=== PATIENT | male | born 1950 | race Two or more races ===

== ENCOUNTER → 2018-04-22 | Day surgery (SDC) | payer OTHER ==
[~2018-04-22] MED LIST: CALTRATE 600 +1 EACH PO; CALTRATE 61 TAB.CHEW; FOSAMAX70 MG PO; INTEGRA PLUS C1 EACH PO; VEDOLIZUMAB PO; [UNRECOGNIZED DRUG - OTHER] PO
== END | disposition home or self-care (01) ==
LOC: ADM 04-21 09:00 → AMB-ENDOS 08:22 → ADM 09:00
DX: K51.00 Ulcerative (chronic) pancolitis without complications (principal)

== ENCOUNTER 2019-08-04 06:40 | Day surgery (SDC) | payer OTHER | END 2019-08-04 13:57 | disposition home or self-care (01) | LOC: AMB-ENDOS 06:40 | DX: K62.89 Other specified diseases of anus and rectum (principal); K52.89 Other specified noninfective gastroenteritis and colitis ==

== ENCOUNTER 2020-09-13 07:00 | Day surgery (SDC) | payer OTHER | END 2020-09-13 12:00 | disposition home or self-care (01) | LOC: AMB-ENDOS 07:00 | PROVIDERS: ATTEND Colon & Rectal Surgery | DX: K51.00 Ulcerative (chronic) pancolitis without complications (principal); Z20.822 Contact with and (suspected) exposure to COVID-19 ==